=== PATIENT | male | born 1950 | race Caucasian/White ===

== ENCOUNTER 2020-07-10 11:44 | Inpatient (IN) ==
[2020-07-10] MEDS: Vitamin E 200 UNIT (90MG) CAPSULE PO SCH (20:58)
[2020-07-10] MEDS: *HR* OxyCODONE/APAP 5/325 TABLET PO PRN (20:58)
[2020-07-11] MEDS: *HR* OxyCODONE/APAP 5/325 TABLET PO PRN ×2 (05:41→21:40)
[2020-07-11 06:20] LABS: Basophils % 0.2 %; Eosinophils # 0.3 K/mcL (0.0-0.6); Eosinophils % 4.1 %; Hematocrit 25.4 % (37.5-50.1); Hemoglobin 8.4 g/dL (12.9-16.9); Immature Granulocytes % 0.4 % (0-4); Lymphocytes # 1.6 K/mcL (0.6-4.6); Lymphocytes % 19.4 %; Mean Corpuscular HGB Conc 33.1 g/dL (31.6-35.5); Mean Corpuscular Hemoglobin 30.7 pg (28.0-33.3); Mean Corpuscular Volume 92.7 fL (83.0-100.0); Mean Platelet Volume 10.2 fL (9.4-12.4); Monocytes # 0.7 K/mcL (0.0-1.3); Monocytes % 8.7 %; Neutrophils # 5.6 K/mcL (1.6-8.9); Platelet Count 115 K/mcL (140-400); Red Blood Count 2.74 M/mcL (4.19-5.50); Red Cell Distribution Width 12.8 % (11.5-14.5); Segmented Neutrophils % 67.2 %; White Blood Count 8.4 K/mcL (4.3-11.1)
[2020-07-11 06:42] LABS: BUN/Creatinine Ratio 26 (6-26); Blood Urea Nitrogen 22 mg/dL (8-23); Calcium 7.8 mg/dL (8.6-10.3); Carbon Dioxide 30 mEq/L (23-29); Chloride 102 mEq/L (98-107); Glucose 113 mg/dL (70-105); Osmolality,Calculated 288 (280-300); Potassium 3.5 mEq/L (3.5-5.1); Sodium 137 mEq/L (136-145); eGFR For African Americans > 60 (> 60); eGFR For Non-African Americans > 60 (> 60)
[2020-07-11] MEDS: Gabapentin 100 MG CAPSULE PO SCH ×3 (06:55→17:36)
[2020-07-11] MEDS: Ascorbic Acid 500 MG TABLET PO SCH (08:31)
[2020-07-11] MEDS: Cholecalciferol (D-3) 1,000 UNIT (25MCG) TABLET PO SCH (08:32)
[2020-07-11] MEDS: Aspirin Enteric Coated 81 MG Tablet PO SCH (08:32)
[2020-07-11] MEDS: amLODIPine 5 MG TABLET PO SCH (08:32)
[2020-07-11] MEDS: Multivit/Ca/Min/Fe/FA 1 TAB TABLET PO SCH (08:32)
[2020-07-11] MEDS: Vitamin E 200 UNIT (90MG) CAPSULE PO SCH ×2 (08:32→21:40)
[2020-07-11] MEDS: Metoprolol XL (24 HR) Succ 25 MG TAB.ER.24H PO SCH (08:32)
[2020-07-11] MEDS: Psyllium 1 PACKET POWD.PACK PO SCH (08:32)
[2020-07-11] MEDS ORDERED: NON-FORMULARY MEDICATION 1 EACH EACH (Omega-3/Dha/Epa/Fish Oil [Fish Oil 1,000 Mg Softgel] PO SCH (09:00)
[2020-07-12 05:41] LABS: Hematocrit 24.5 % (37.5-50.1); Hemoglobin 8.1 g/dL (12.9-16.9); Mean Corpuscular HGB Conc 33.1 g/dL (31.6-35.5); Mean Corpuscular Hemoglobin 31.4 pg (28.0-33.3); Mean Platelet Volume 9.9 fL (9.4-12.4); Platelet Count 125 K/mcL (140-400); Red Blood Count 2.58 M/mcL (4.19-5.50); Red Cell Distribution Width 12.7 % (11.5-14.5); White Blood Count 6.3 K/mcL (4.3-11.1)
[2020-07-12 05:55] LABS: Alanine Aminotransferase 17 Units/L (7-52); Albumin 3.3 g/dL (3.5-5.7); Albumin/Globulin Ratio 1.6 (1.1-2.2); Alkaline Phosphatase 32 Units/L (34-104); Aspartate Amino Transferase 25 Units/L (13-39); BUN/Creatinine Ratio 24 (6-26); Bilirubin,Total 0.7 mg/dL (0.3-1.0); Blood Urea Nitrogen 19 mg/dL (8-23); Calcium 7.9 mg/dL (8.6-10.3); Carbon Dioxide 27 mEq/L (23-29); Chloride 107 mEq/L (98-107); Globulin 2.1 g/dL (2.4-3.5); Glucose 105 mg/dL (70-105); Magnesium 2.2 mg/dL (1.6-2.6); Osmolality,Calculated 295 (280-300); Potassium 4.1 mEq/L (3.5-5.1); Sodium 141 mEq/L (136-145); Total Protein 5.4 g/dL (6.4-8.9); eGFR For African Americans > 60 (> 60); eGFR For Non-African Americans > 60 (> 60)
[2020-07-12] MEDS: Gabapentin 100 MG CAPSULE PO SCH ×3 (06:41→17:16)
[2020-07-12] MEDS: *HR* OxyCODONE/APAP 5/325 TABLET PO PRN ×2 (06:41→22:20)
[2020-07-12] MEDS: *HR* Enoxaparin 40 MG/0.4 ML SYRINGE SQ SCH (06:41)
[2020-07-12] MEDS: Psyllium 1 PACKET POWD.PACK PO SCH (08:14)
[2020-07-12] MEDS: Multivit/Ca/Min/Fe/FA 1 TAB TABLET PO SCH (08:14)
[2020-07-12] MEDS: amLODIPine 5 MG TABLET PO SCH (08:15)
[2020-07-12] MEDS: Vitamin E 200 UNIT (90MG) CAPSULE PO SCH ×2 (08:15→22:20)
[2020-07-12] MEDS: Cholecalciferol (D-3) 1,000 UNIT (25MCG) TABLET PO SCH (08:15)
[2020-07-12] MEDS: Metoprolol XL (24 HR) Succ 25 MG TAB.ER.24H PO SCH (08:15)
[2020-07-12] MEDS: Ascorbic Acid 500 MG TABLET PO SCH (08:15)
[2020-07-12] MEDS: Aspirin Enteric Coated 81 MG Tablet PO SCH (08:15)
[2020-07-13] MEDS: *HR* Enoxaparin 40 MG/0.4 ML SYRINGE SQ SCH (06:48)
[2020-07-13] MEDS: *HR* OxyCODONE/APAP 5/325 TABLET PO PRN ×2 (06:49→13:55)
[2020-07-13] MEDS: Gabapentin 100 MG CAPSULE PO SCH ×3 (06:49→17:28)
[2020-07-13] MEDS: Multivit/Ca/Min/Fe/FA 1 TAB TABLET PO SCH (10:07)
[2020-07-13] MEDS: Aspirin Enteric Coated 81 MG Tablet PO SCH (10:17)
[2020-07-13] MEDS: amLODIPine 5 MG TABLET PO SCH (10:17)
[2020-07-13] MEDS: Cholecalciferol (D-3) 1,000 UNIT (25MCG) TABLET PO SCH (10:17)
[2020-07-13] MEDS: Ascorbic Acid 500 MG TABLET PO SCH (10:17)
[2020-07-13] MEDS: Metoprolol XL (24 HR) Succ 25 MG TAB.ER.24H PO SCH (10:17)
[2020-07-13] MEDS: Vitamin E 200 UNIT (90MG) CAPSULE PO SCH ×2 (10:17→21:47)
[2020-07-13] MEDS: Psyllium 1 PACKET POWD.PACK PO SCH (10:18)
[2020-07-13] MEDS: polyethylene glycoL 3350 17 GM POWD.PACK PO SCH (17:28)
[2020-07-13] MEDS: Sennosides/Docusate Sodium TABLET PO SCH (21:47)
[2020-07-14] MEDS: *HR* Enoxaparin 40 MG/0.4 ML SYRINGE SQ SCH (06:23)
[2020-07-14] MEDS: Gabapentin 100 MG CAPSULE PO SCH ×3 (06:24→17:56)
[2020-07-14] MEDS: Multivit/Ca/Min/Fe/FA 1 TAB TABLET PO SCH (08:08)
[2020-07-14] MEDS: Psyllium 1 PACKET POWD.PACK PO SCH (08:08)
[2020-07-14] MEDS: amLODIPine 5 MG TABLET PO SCH (08:08)
[2020-07-14] MEDS: Cholecalciferol (D-3) 1,000 UNIT (25MCG) TABLET PO SCH (08:08)
[2020-07-14] MEDS: polyethylene glycoL 3350 17 GM POWD.PACK PO SCH (08:08)
[2020-07-14] MEDS: Aspirin Enteric Coated 81 MG Tablet PO SCH (08:08)
[2020-07-14] MEDS: Metoprolol XL (24 HR) Succ 25 MG TAB.ER.24H PO SCH (08:08)
[2020-07-14] MEDS: Ascorbic Acid 500 MG TABLET PO SCH (08:08)
[2020-07-14] MEDS: Vitamin E 200 UNIT (90MG) CAPSULE PO SCH ×2 (08:08→21:32)
[2020-07-14] MEDS: Sennosides/Docusate Sodium TABLET PO SCH ×2 (08:08→21:32)
[2020-07-14] MEDS: *HR* OxyCODONE/APAP 5/325 TABLET PO PRN ×2 (08:20→18:03)
[2020-07-15] MEDS: *HR* Enoxaparin 40 MG/0.4 ML SYRINGE SQ SCH (05:36)
[2020-07-15] MEDS: Gabapentin 100 MG CAPSULE PO SCH ×3 (05:37→18:33)
[2020-07-15] MEDS: Aspirin Enteric Coated 81 MG Tablet PO SCH (08:44)
[2020-07-15] MEDS: Vitamin E 200 UNIT (90MG) CAPSULE PO SCH ×2 (08:44→20:22)
[2020-07-15] MEDS: Sennosides/Docusate Sodium TABLET PO SCH ×2 (08:44→20:22)
[2020-07-15] MEDS: polyethylene glycoL 3350 17 GM POWD.PACK PO SCH (08:44)
[2020-07-15] MEDS: Psyllium 1 PACKET POWD.PACK PO SCH (08:44)
[2020-07-15] MEDS: *HR* OxyCODONE/APAP 5/325 TABLET PO PRN (08:45)
[2020-07-15] MEDS: Ascorbic Acid 500 MG TABLET PO SCH (08:45)
[2020-07-15] MEDS: Cholecalciferol (D-3) 1,000 UNIT (25MCG) TABLET PO SCH (08:45)
[2020-07-15] MEDS: amLODIPine 5 MG TABLET PO SCH (08:45)
[2020-07-15] MEDS: Multivit/Ca/Min/Fe/FA 1 TAB TABLET PO SCH (08:45)
[2020-07-15] MEDS: Metoprolol XL (24 HR) Succ 25 MG TAB.ER.24H PO SCH (08:45)
[2020-07-15] MEDS ORDERED: Bisacodyl 10 MG RECTAL SUPPOSITORY RC PRN (13:18)
[2020-07-16] MEDS: Gabapentin 100 MG CAPSULE PO SCH ×3 (04:56→17:28)
[2020-07-16] MEDS: *HR* Enoxaparin 40 MG/0.4 ML SYRINGE SQ SCH (04:56)
[2020-07-16] MEDS: Psyllium 1 PACKET POWD.PACK PO SCH (07:51)
[2020-07-16] MEDS: polyethylene glycoL 3350 17 GM POWD.PACK PO SCH (07:51)
[2020-07-16] MEDS: Ascorbic Acid 500 MG TABLET PO SCH (07:53)
[2020-07-16] MEDS: amLODIPine 5 MG TABLET PO SCH (07:53)
[2020-07-16] MEDS: *HR* OxyCODONE/APAP 5/325 TABLET PO PRN ×2 (07:53→20:27)
[2020-07-16] MEDS: Sennosides/Docusate Sodium TABLET PO SCH ×2 (07:53→20:27)
[2020-07-16] MEDS: Metoprolol XL (24 HR) Succ 25 MG TAB.ER.24H PO SCH (07:53)
[2020-07-16] MEDS: Aspirin Enteric Coated 81 MG Tablet PO SCH (07:54)
[2020-07-16] MEDS: Vitamin E 200 UNIT (90MG) CAPSULE PO SCH ×2 (07:54→20:27)
[2020-07-16] MEDS: Multivit/Ca/Min/Fe/FA 1 TAB TABLET PO SCH (07:54)
[2020-07-16] MEDS: Cholecalciferol (D-3) 1,000 UNIT (25MCG) TABLET PO SCH (07:54)
[2020-07-17 05:13] LABS: Basophils % 0.4 %; Eosinophils # 0.4 K/mcL (0.0-0.6); Eosinophils % 5.4 %; Hematocrit 26.5 % (37.5-50.1); Hemoglobin 8.5 g/dL (12.9-16.9); Immature Granulocytes % 0.7 % (0-4); Lymphocytes # 1.6 K/mcL (0.6-4.6); Lymphocytes % 23.2 %; Mean Corpuscular HGB Conc 32.1 g/dL (31.6-35.5); Mean Corpuscular Hemoglobin 30.5 pg (28.0-33.3); Mean Platelet Volume 9.2 fL (9.4-12.4); Monocytes # 0.5 K/mcL (0.0-1.3); Monocytes % 7.8 %; Neutrophils # 4.3 K/mcL (1.6-8.9); Platelet Count 285 K/mcL (140-400); Red Blood Count 2.79 M/mcL (4.19-5.50); Red Cell Distribution Width 13.8 % (11.5-14.5); Segmented Neutrophils % 62.5 %; White Blood Count 6.9 K/mcL (4.3-11.1)
[2020-07-17 05:32] LABS: BUN/Creatinine Ratio 23 (6-26); Blood Urea Nitrogen 15 mg/dL (8-23); Calcium 8.2 mg/dL (8.6-10.3); Carbon Dioxide 31 mEq/L (23-29); Chloride 104 mEq/L (98-107); Glucose 102 mg/dL (70-105); Osmolality,Calculated 289 (280-300); Sodium 139 mEq/L (136-145); eGFR For African Americans > 60 (> 60); eGFR For Non-African Americans > 60 (> 60)
[2020-07-17] MEDS: *HR* Enoxaparin 40 MG/0.4 ML SYRINGE SQ SCH (05:37)
[2020-07-17] MEDS: Gabapentin 100 MG CAPSULE PO SCH (05:37)
[2020-07-17 08:01] VITALS: BP 147/76
[2020-07-17] MEDS: Sennosides/Docusate Sodium TABLET PO SCH (08:23)
[2020-07-17] MEDS: Multivit/Ca/Min/Fe/FA 1 TAB TABLET PO SCH (08:23)
[2020-07-17] MEDS: Aspirin Enteric Coated 81 MG Tablet PO SCH (08:23)
[2020-07-17] MEDS: polyethylene glycoL 3350 17 GM POWD.PACK PO SCH (08:24)
[2020-07-17] MEDS: Cholecalciferol (D-3) 1,000 UNIT (25MCG) TABLET PO SCH (08:24)
[2020-07-17] MEDS: amLODIPine 5 MG TABLET PO SCH (08:24)
[2020-07-17] MEDS: Ascorbic Acid 500 MG TABLET PO SCH (08:24)
[2020-07-17] MEDS: Psyllium 1 PACKET POWD.PACK PO SCH (08:24)
[2020-07-17] MEDS: Vitamin E 200 UNIT (90MG) CAPSULE PO SCH (08:24)
[2020-07-17] MEDS: Metoprolol XL (24 HR) Succ 25 MG TAB.ER.24H PO SCH (08:24)
== END 2020-07-17 11:09 | disposition home or self-care (01) | DRG 561 ==
LOC: INPGRE 17:37
PROVIDERS: ADMIT Family Medicine; ATTEND Family Medicine